=== PATIENT | male | born 1980 | race Caucasian/White ===

== ENCOUNTER 2023-10-12 20:56 | Emergency (ER) | payer OTHER, SELFPAY ==
[2023-10-12 20:59] VITALS: BP 179/99
[2023-10-12 21:28] VITALS: BMI 28.7
--- NOTE | 2023-10-12 22:06 | ED.GENMED ---
History of Present Illness
<JOHNATHAN Roberts - Last Filed: 10/13/23 01:27>
General
Chief Complaint: Back Pain
Source: patient and significant other ( )
Exam Limitations: none
Time Seen by Provider: 10/12/23 22:06
Nursing documentation reviewed up to this point in time: agreed with
History of Present Illness
History of Present Illness:
43 year old male presents for evaluation of back pain. Pt notes that his back pain began two weeks ago and has gradually been worsening. He endorses some heavy lifting recently, but denies any trauma or noticeable injury to his back two weeks ago.
Pt adds that he awoke today with excruciating left lower back pain with radiation into his left leg stopping at the level of the knee. He endorses intermittent numbness and tingling in his left leg as well. He took 5 tabs of Aleve in the last 6
hours with no relief of his symptoms. He notes that lying supine and sitting worsen the pain, and also endorses difficulty with ambulation. Denies fever, N/V, and incontinence of bladder/bowel.
Review of Systems
<JOHNATHAN Roberts - Last Filed: 10/13/23 01:27>
Review of Systems
Allergies reviewed?: Yes
Constitutional: Reports no symptoms
EENT: Reports no symptoms
Respiratory: Reports no symptoms
Cardiac: Reports no symptoms
ABD/GI: Reports no symptoms
: Reports no symptoms
Musculoskeletal: Reports back pain and other (left leg pain and intermittent numbness/tingling)
Skin: Reports no symptoms
Neurological: Reports numbness
Endocrine: Reports no symptoms
Hematologic/Lymphatic: Reports no symptoms
Psychiatric: Reports no symptoms
Phy Exam
<JOHNATHAN Roberts - Last Filed: 10/13/23 01:27>
General Physical Exam
General Presentation: mild distress
General age: appears stated age
General Skin: warm
General Habitus: normal
General Mental: alert
General Hydration: appears well hydrated
Cardiovascular Exam
Cardiovascular Exam: regular rate/rhythm
Pulmonary Exam
Pulmonary Exam: lungs clear and no respiratory distress
Neurological Exam
Neurological Exam: alert and oriented x3
Musculoskeletal Exam
Musculoskeletal Exam: back pain, neuro vasc intact and other (limited ROM with spine flexion and extension. Positive left straight leg raise. No bony tenderness.)
Course
<ST ArmandoPA - Last Filed: 10/13/23 01:27>
Orders/Labs/Results
Orders:
Orders
10/12/23 21:01
CR Lumbar Spine Comp Min 4 Vw* Urgent
Comment:
Reason For Exam: pain
10/12/23 22:30
Cyclobenzaprine HCl [Flexeril] 10 mg PO NOW STA
Hydrocodone 7.5/APAP 325 [[place] 7.5/325] 1 tablet PO NOW STA
Prednisone [Deltasone] 50 mg PO NOW STA
Vital Signs
Initial and Last Documented VS:
Initial Vital Signs
Temp Pulse Resp BP Pulse Ox
98.3 F 98 20 179/99 98
10/12/23 20:59 10/12/23 20:59 10/12/23 20:59 10/12/23 20:59 10/12/23 20:59
Last Documented Vital Signs
Temp Pulse Resp BP Pulse Ox
98.3 F 98 20 179/99 98
10/12/23 20:59 10/12/23 20:59 10/12/23 20:59 10/12/23 20:59 10/12/23 20:59
<Remedios Woodruff DO - Last Filed: 10/12/23 22:41>
Orders/Labs/Results
Orders:
Orders
10/12/23 21:01
CR Lumbar Spine Comp Min 4 Vw* Urgent
Comment:
Reason For Exam: pain
10/12/23 22:30
Cyclobenzaprine HCl [Flexeril] 10 mg PO NOW STA
Hydrocodone 7.5/APAP 325 [[place] 7.5/325] 1 tablet PO NOW STA
Prednisone [Deltasone] 50 mg PO NOW STA
Vital Signs
Initial and Last Documented VS:
Initial Vital Signs
Temp Pulse Resp BP Pulse Ox
98.3 F 98 20 179/99 98
10/12/23 20:59 10/12/23 20:59 10/12/23 20:59 10/12/23 20:59 10/12/23 20:59
Last Documented Vital Signs
Temp Pulse Resp BP Pulse Ox
98.3 F 98 20 179/99 98
10/12/23 20:59 10/12/23 20:59 10/12/23 20:59 10/12/23 20:59 10/12/23 20:59
<JOHNATHAN Roberts - Last Filed: 10/13/23 01:27>
MDM/Problems Addressed
Differential Diagnosis Includes:
sciatica/ lumbar disc herniation
<JOHNATHAN Roberts - Last Filed: 10/13/23 01:27>
*Critical Care Note
Total Time (30-74mins, 75-104mins- exclusive of procedures): Not Applicable
<Remedios Woodruff DO - Last Filed: 10/12/23 22:41>
*Radiology
Radiology exam reviewed: preliminary read by ED provider (Lumbar spine film shows mild DJD otherwise unremarkable.)
*Pulse Oximetry
Patient hypoxic: no
*Critical Care Note
Total Time (30-74mins, 75-104mins- exclusive of procedures): Not Applicable
<JOHNATHAN Roberts - Last Filed: 10/13/23 01:27>
Update Note
Update Note:
10/12/23 2245: Pt endorses mild pain relief after receiving Cyclobenzaprine HCl [Flexeril] 10 mg PO, Hydrocodone 7.5/APAP 325 [[place] 7.5/325] 1 tablet PO, and Prednisone [Deltasone] 50 mg PO
ED Attending Note
<JOHNATHAN Roberts - Last Filed: 10/13/23 01:27>
-
Portions of this chart may have been created with voice recognition software.� Occasional wrong word or��sound alike� substitutions may have occurred due to the inherent limitations of voice recognition software.
<Remedios Woodruff DO - Last Filed: 10/12/23 22:41>
ED Attending Note
Patient seen and examined by attending physician: Yes
I performed the substantive portion of visit, reviewed & personally made and approve the management plan that is documented in note by myself or TRICIA.: Yes
ED Attending Note:
This is a 43-year-old gentleman with no significant past medical history save for similar low back pain with sciatica he suffered approximately 5 years ago, treated with a course of oral medications with resolution.
He complains of 2-week episode of left low back pain that radiates to his left posterior lateral thigh. No insightful injury but does admit to occasional bending and lifting. Back pain has been worsening over the past 2 weeks, much worse today,
unrelieved after taking approximately 5 Aleve over the past few hours. He does admit to mild numbness of his posterior left thigh but no weakness, no saddle anesthesia, no difficulty moving his bowels or bladder. No fevers or chills. No rash. No
abdominal pain.
Pain is worse with flexion and with sitting, improves when he stands.
He did try to call his PCP but states his primary care physician is currently on vacation this week.
No prior surgeries, no previous epidural steroid injections. Denies IV drug use.
He takes no medicines on a daily basis.
GENERAL: 43-year-old gentleman appears his stated age, standing in exam room, ambulatory with mildly antalgic gait. Appears mildly uncomfortable but easily communicative. is accompanying.
EYE: anicteric
NECK: Supple, nontender, no meningismus, no significant adenopathy.
ENT: oral mucosa is moist. No rhinorrhea.
CARDIAC: Regular rate and rhythm. no murmur.
LUNGS: Clear breath sounds bilaterally, no acute respiratory distress, no wheezes/rales/rhonchi
ABDOMEN: Soft, nondistended, without focal tenderness, no r/g, no cvat. normoactive BS.
BACK: No midline bony tenderness there is significant left paralumbar muscle spasm with moderate left paralumbar tenderness to palpation. Moderately restricted lumbar range of motion. Straight leg raising is positive on the left.
NEUROLOGICAL: Alert and oriented x3, no focal neuro deficits. Motor strength is 5/5 bilaterally. Gross sensation is intact.
SKIN: Warm and dry, normal color, skin intact. No rash.
MUSCULOSKELETAL: No C/C/E. peripheral pulses are full and equal b/l. No palpable tenderness.
PSYCH: Normal and appropriate interaction.
History and exam consistent with left lumbar sprain/sprain with left-sided sciatica.
Nothing in history nor exam to suggest cauda equina syndrome nor acute cord syndrome.
No known trauma or falls.
Lumbar spine film shows minimal DJD otherwise unremarkable.
Recommend a course of prednisone, short course of as needed Vicodin for pain, Flexeril for muscle spasm.
Recommend continuing local heat, rest.
Prompt follow-up with PCP for recheck.
Return precautions discussed.
Discharge Plan
Departure
Patient Disposition: Home (Routine Discharge)
Date of Disposition: 10/12/23
Time of Disposition: 22:31
Patient with high blood pressure during this ER visit?: Yes
Condition: Good
Discharge Problem:
Acute left-sided low back pain with left-sided sciatica
Instructions: Low Back Pain (DC), Sciatica (DC), BLOOD PRESSURE
Prescriptions:
New
prednisone 10 mg Tablet
See Rx Instructions .ROUTE .COMPLEX Qty: 30 0RF
Rx Instructions:
Take By Mouth:
40 mg daily x3 days, 30 mg daily x3 days,
20 mg daily x3 days, 10 mg daily x3 days.
cyclobenzaprine 10 mg tablet
10 mg PO TIDPRN PRN (Reason: muscle spasm) Qty: 20 0RF
hydrocodone-acetaminophen 5-300 mg tablet
1 tab PO Q8H PRN (Reason: Pain) Qty: 10 0RF
No Action
naproxen sodium [Aleve] 220 mg Capsule
220 mg PO Q8H PRN (Reason: back pain)
Interventions
Interventions:
*Risk Screen - Suicide Last Done: 10/12/23 20:59
*General Assessment Last Done: 10/12/23 20:59
*Neglect/Abuse Screening Last Done: 10/12/23 20:59
ED- Fall Risk Assessment Last Done: 10/12/23 21:29
*ED COVID-19 Vaccine History Last Done: 10/12/23 21:29
*Nursing Disposition Last Done: 10/12/23 23:00
ED-Musculoskeletal Assessment Last Done: 10/12/23 21:30
Discharge Date and Time
Discharge Date/Time: 10/12/23 23:00
Print Language: [place]
[2023-10-12] MEDS: NORCO 7.5/325 1 TABLET PO (22:44)
[2023-10-12] MEDS: DELTASONE 50 MG PO (22:44)
[2023-10-12] MEDS: FLEXERIL 10 MG PO (22:44)
[2023-10-12 23:00] VITALS: BP 148/72
== END 2023-10-12 23:00 | disposition home or self-care (01) ==
LOC: EMR 20:56
PROVIDERS: EMERGENCY PHYSICIAN Emergency Medicine; FAMILY PHYSICIAN Internal Medicine
DX: M54.42 Lumbago with sciatica, left side (principal); R20.2 Paresthesia of skin; R20.0 Anesthesia of skin; M79.605 Pain in left leg; M47.816 Spondylosis without myelopathy or radiculopathy, lumbar region; R03.0 Elevated blood-pressure reading, without diagnosis of hypertension
CPT/HCPCS: 99283; 72110